=== PATIENT | female | born 1965 | race Caucasian/White ===

== ENCOUNTER → 2019-09-27 | Outpatient (CLI) | payer OTHER ==
--- NOTE | 2019-09-27 17:01 | EXE ---
[place] [address] STRESS ECHOCARDIOGRAM Name: YONG CRABTREE Nancy Room: [facility]#: [id number] Admission: 09/27/19 Attend Phys: Kannan Borjas, Discharge: Date of : 63 Date of Service: 09/27/19 1700 Report #: [id number] THIS REPORT FOR: //name// APPROVED REPORT Study performed: 09/27/2019 15:45:41 Exam: Stress Echocardiogram Indication: Dyspnea Patient Location: Out-Patient Stress Nurse: Kaley Chacon RN Supervising Physician: Kannan Borjas MD Ht: 5 ft 3 in HR: 78 bpm BP: 162/105 mmHg Procedure The patient underwent an Exercise Stress Test using the Mango Protocol. Blood pressure, heart rate, and EKG were monitored. An Echocardiogram was performed by physics technician in four stages in quad fashion. At peak stress, four selected images were obtained and placed side by side with resting images for comparison. Stress Test Details Stress Test: Exercise stress testing was performed using a Mango protocol. HR Resting HR: 78 bpm Max Heart Rate (APMHR): 165 bpm Max HR Achieved: 158 bpm Target HR (85% APMHR): 140 bpm % of APMHR: 95 Recovery HR: 97 bpm HR response to stress: Normal HR response to stress BP Resting BP: 162/105 mmHg Max BP: 219/103 mmHg Recovery BP: 174/107 mmHg BP response to stress: Mildly hypertensive response to stress. ECG Resting ECG: Sinus Rhythm Stress ECG: Sinus Tachycardia ST Change: None Arrhythmia: None Recovery ECG: [place] [address] STRESS ECHOCARDIOGRAM Name: YONG CRABTREE Room: [facility]#: [id number] Admission: 09/27/19 Attend Phys: Kannan Borjas, Discharge: Date of : 63 Date of Service: 09/27/19 1700 Report #: [id number] Recovery ST Change: None Recovery Arrhythmia: None Clinical Reason for Termination: Completed protocol Exercise duration: 7 min 59 sec Highest Stage Achieved: Stage 3: 3.4 mph at 14% grade. Exercise capacity: 10.11 METs The patient tolerated protocol exercise without significant cardiac symptoms. Stress ECG Conclusion The baseline 12-lead EKG shows sinus rhythm without significant ST or T wave abnormality. EKGs during and post stress show sinus rhythm and sinus tachycardia without significant ST or T wave changes when compared to baseline. There were no stress-induced arrhythmias. Pre-Stress Echo The resting Echocardiogram showed normal left ventricular contractility with an estimated Ejection Fraction of about 60-65%. Normal wall motion in all segments on baseline images. Post-Stress Echo The stress Echocardiogram showed normal left ventricular contractility with an estimated Ejection Fraction of about >70%. Normal augmentation of wall motion in all segments on post stress images. Clinical No clinical or ECG evidence for ischemia. Conclusion Clinical Response: Non-ischemic Exercise Capacity: Average Stress ECG Response: Non-ischemic Stress Echo Images: Non-ischemic The left ventricle is normal in size and wall thickness in both the rest and stress images. Other Information Study Quality: Good <Conclusion> [place] [address] STRESS ECHOCARDIOGRAM Name: YONG CRABTREE Room: [facility]#: [id number] Admission: 09/27/19 Attend Phys: Kannan Borjas, Discharge: Date of : 63 Date of Service: 09/27/191699 Report #: [id number] The left ventricle is normal in size and wall thickness in both the rest and stress images. <ELECTRONICALLY SIGNED> By: Kannan Borjas MD, FACC 09/27/191699 99 99 Kannan Borjas MD, FACC /INF
== END ==
LOC: M.CRD 14:35
DX: R06.02 Shortness of breath (principal)

== ENCOUNTER → 2019-11-14 | Outpatient (CLI) | payer OTHER | LOC: M.RAD 09:04 | DX: M43.16 Spondylolisthesis, lumbar region (principal); M47.816 Spondylosis without myelopathy or radiculopathy, lumbar region; M54.6 Pain in thoracic spine ==